=== PATIENT | male | born 1950 | race Caucasian/White ===

== ENCOUNTER 2024-07-05 18:49 | Emergency (ER) | payer MEDICARE, SELFPAY ==
[2024-07-05] VITALS (8 sets, daily range): BP systolic 130–132; BP diastolic 70–84; PULSE 78–99; RESP 16; TEMP 36.7; O2SAT 94–99
--- NOTE | 2024-07-05 19:00 | DI.CT_ITS ---
Exam(s) CT HEAD WO EXAM: CT HEAD WO CLINICAL HISTORY: dizziness, BANUELOS, weeks onset. TECHNIQUE: Imaging Protocol: Axial computed tomography images with coronal and sagittal reformatted images were created and reviewed COMPARISON: No exams were available for comparison FINDINGS: Ventricles and Extra axial spaces: Normal in size and morphology for the patient's age. Hemorrhage: None. Cerebral parenchyma: There are areas of decreased attenuation in the white matter consistent with sma ll vessel ischemic disease. 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 Midline shift: None. Brainstem/Cerebellum: Normal. Calvarium: Normal. Visualized Paranasal sinuses/Mastoids: Clear. Soft Tissues: Unremarkable. IMPRESSION: No acute intracranial process. RADIATION DOSE DELIVERED: 857.14mGy.cm Total DLP DATA REPOSITORY: All CT scans at this facility are submitted to the National Radiology Data Registry (NRDR) Dose Index Registry (DIR) with the [employer] ([employer]). RADIATION OPTIMIZATION: All CT scans at this facility use at least one of these dose optimization te chniques: automated exposure control; mA and/or kV adjustment per patient size (includes targeted exa ms where dose is matched to clinical indication); or iterative reconstruction.
--- NOTE | 2024-07-05 19:00 | RT.EKG_ITS ---
APPROVED REPORT Exam: Resting ECG Reason for Exam: dizziness Patient Location: E HR:91 bpm ECG Measurements Heart Rate [address] 195 P 52 QRSd 103 QRS -54 QT 352 T 88 QTc 435 Conclusion Sinus rhythm, rate 91 No interval abnormalities No STEMI
--- NOTE | 2024-07-05 19:02 | ED.GENADUL_ITS ---
Discharge Plan Disposition Patient Disposition: Home Condition: Stable Discharge Details Clinical Impression: Fatigue Primary Care Provider: Unknown,Unknown ED Provider: Morgan Merritt Home Meds and New Rx's Prescriptions: No Action acetaminophen [8HR Muscle Aches-Pain] 650 mg tablet extended release 650 mg PO Q8H PRN Discharge Instructions Instructions: Fatigue Additional Instructions: You were seen in the emergency department for your longstanding fatigue that is gradually increasing with time and exertion, you feel that you may have Lyme disease, we will not get results back on your Lyme test until tomorrow, the other tickborne illnesses like ehrlichiosis and babesiosis will not come back for 3 to 4 days. You do not have a primary care provider and I am placing on a list for primary care establishment. You are a longstanding smoker and I think you need some baseline pulmonary function testing as well as baseline cardiology studies performed. There is no abnormalities seen on your EKG and your troponin which is a cardiac enzyme that measures strain on the heart is negative tonight. There is no sign of major infection on your blood work I think it is reasonable that you be discharged home but I do stress that you likely need in-depth outpatient evaluation and primary care establishment with specialty referrals. Please return to the emergency department for any profound increase in your symptoms, any increasing fever, neurologic abnormalities, chest pain with exertion, profound shortness of breath. Referrals: [facility] [Provider Group] [facility] [Provider Group] Discharge Data Discharge Date/Time-TO BE ENTERED AT DEPARTURE: 07/05/24 22:04 HPI General Date/Time Provider Initiated Documentation: 07/05/24 19:02 . HPI Narrative: 73 year-old male presents to ED today by POV/ambulating with his with a chief complaint of fatigue, decreased appetite, occasional positional dizziness when getting up too fast, wants to be tested for Lyme as he's had many tick bites over the summer with onset weeks to months. Quality described as generalized fatigue, sleeping often, decreased appetite, no radiation to fever, cough, abdominal pain, intractable nausea/vomiting, numbness/tingling, focal weakness, endorses that he gets short on breath after exertion. Severity is described as moderate. Palliating factors include nothing specific. Provoking factors include nothing specific. Events leading up to the incident/Associated Symptoms: Patient is a longstanding smoker, does not go to the doctors often, and goes to [facility] to obtain Tylenol w/ codeine for knee pain. Patient not anticoagulated. Related Data Home Medications ?Medication ?Instructions ?Recorded ?Confirmed acetaminophen 650 mg 650 mg PO Q8H PRN 07/05/24 07/05/24 tablet,extended release (8HR Muscle Aches-Pain) Allergies Allergy/AdvReac Type Severity Reaction Status Date / Time No Known Allergies Allergy Unverified 07/05/24 18:56 General Stated Complaint: GenMedical LOUISA: 3 Review of Systems All systems reviewed & are unremarkable except as noted in HPI and below Exam Narrative Exam Narrative: GENERAL APPEARANCE: Well-nourished, non-toxic, awake and alert, atraumatic, no acute distress. SKIN: Warm, pink, dry, intact, without rashes/lesions/ulcerations. HEAD: Normocephalic, atraumatic, normal hair distribution for gender/age. EYES: Normal conjunctiva, no exudates on lids/lashes. ENT: Nares patent, no circumoral cyanosis, no facial swelling NECK: Supple, trachea midline, painless cervical ROM. LUNGS/CHEST: Lungs CTA bilaterally- mild expiratory wheezes, non-labored respirations, increased A/P diameter, symmetrical expansion, no chest wall deformity HEART (CV/PV): Regular rate and rhythm without murmur, no peripheral edema, no JVD. ABDOMEN: Soft, non-distended, no guarding, no tenderness. MSK: Normal ROM, no swelling/deformity to bilateral UEs or LEs, moving all extremities without weakness, no cyanosis, spine midline without tenderness, normal curvature. NEURO: Mental Status AAOx4 - alert to person, place, time, events No facial droop, no forehead involvement, no dysmetria with FNF/heel-dodson Motor: No focal weakness - strength 5/5 in bilateral UEs and LEs, proximal and distal, symmetric. Sensory: sensation intact to light touch globally. Gait normal: patient ambulated without ataxia into ED room. PSYCH: euthymic, cooperative, pleasant, appropriate speech Course Vital Signs Vital signs: Vital Signs Temperature 36.7 C 07/05/24 18:53 Pulse 99 H 07/05/24 18:53 Respiratory Rate 16 07/05/24 18:53 Blood Pressure 132/84 07/05/24 18:53 Pulse Oximetry 99 09/23/24 18:53 Temperature 36.7 C 07/05/24 18:53 Pulse 99 H 07/05/24 18:53 Respiratory Rate 16 07/05/24 18:53 Respiratory Effort Normal 07/05/24 18:55 Blood Pressure 132/84 07/05/24 18:53 Pulse Oximetry 99 07/05/24 18:53 Pain Level 4 07/05/24 18:53 Medical Decision Making This dictation utilizes [id number] dictation software and may contain unedited grammatical errors. 73 year-old male presents to ED today by POV/ambulating with his with a chief complaint of fatigue, decreased appetite, occasional positional dizziness when getting up too fast, wants to be tested for Lyme as he's had many tick bites over the summer with onset weeks to months. Quality described as generalized fatigue, sleeping often, decreased appetite, no radiation to fever, cough, abdominal pain, intractable nausea/vomiting, numbness/tingling, focal weakness, endorses that he gets short on breath after exertion. Severity is described as moderate. Palliating factors include nothing specific. Provoking factors include nothing specific. Events leading up to the incident/Associated Symptoms: Patient is a longstanding smoker, does not go to the doctors often, and goes to [facility] to obtain Tylenol w/ codeine for knee pain. Patients' medical history: Unknown, patient does not go to the doctor office. Family and social history: Longstanding heavy smoker, denies illicit drug use, no sick contacts. Pertinent exam findings / vital signs include increased A/P diameter with poor air movement, no severe wheezing, no hypoxia, benign abdomen, neuro intact, no dysmetria with cerebellar testing. Differential / pathologies of concern include viral syndrome, pneumonia, COPD exacerbation, demand ischemia, tickborne illness, electrolyte abnormality, intracranial mass. Diagnostic studies of: -CBC, CMP, troponin I, magnesium, TSH, BNP, COVID/flu/RSV PCR, tick and Lyme panel, CT head without contrast, EKG. -CBC without leukocytosis, mild anemia -CMP without electrolyte abnormalities -Trop negative with reliable onset -BNP negative -TSH wnl -Covid/Flu/RSV negative -Magnesium WNL -Tick panel pending -CT Head negative -EKG without ischemic changes Interventions of: -None, recommend patient establish PCP care. ED Course/Assessment/Plan: 73-year-old male who is a lifelong heavy smoker presents with worsening fatigue over the summer months with lots of tick bites, I question whether he has viral syndrome versus chronic COPD causing some exertional fatigue, his tick panel is still pending, his cardiac workup is negative, there is no intracranial abnormality on CT head without contrast, the patient has not seen a doctor in many years I did place him on the list to establish primary care, I think he needs an echocardiogram possibly stress test as well as evaluation for his chronic fatigue, I stressed strict return criteria for any emergent concerns. Findings not consistent with hypoxic respiratory failure, acute coronary syndrome, electrolyte abnormality, infection, thyroid abnormality, intracranial pathology. Disposition of Fatigue. Patient verbalized understanding of the plan and return to ED criteria and engaged in shared decision making. Medical Records Medical records reviewed: Yes I reviewed the patient's medical records. Imaging Data Radiologic Study: Attestation: I personally reviewed and interpreted this imaging study as follows: Imaging: CT Scan Radiologist's impression: Exam: CT Head Without Contrast Exam date and time: 07/05/2024 8:59 PM Age: 73 years old Clinical indication: Dizziness and other: Weakness, BANUELOS; Patient HX: Dizziness, weakness, BANUELOS TECHNIQUE: Imaging protocol: Computed tomography of the head without contrast. Radiation optimization: All CT scans at this facility use at least one of these dose optimization techniques: automated exposure control; mA and/or kV adjustment per patient size (includes targeted exams where dose is matched to clinical indication); or iterative reconstruction. COMPARISON: No relevant prior studies available. FINDINGS: Brain: There is mild diffuse volume loss with prominence of the cortical sulci. Periventricular and deep white matter hypodensities are consistent with sequela of chronic microvascular ischemic disease. Suspect old lacunar infarct within the left basal ganglia but nonspecific. No midline shift or herniation. No acute intracranial hemorrhage. Cerebral ventricles: Mild ex vacuo dilation of the ventricles, favored secondary to diffuse volume loss with nonspecific. Paranasal sinuses: Imaged paranasal sinuses appropriately aerated without air-fluid levels. Mastoid air cells: No mastoid effusion. Bones: Unremarkable. No acute fracture. Soft tissues: No focal soft tissue abnormality. IMPRESSION: No acute intracranial hemorrhage. Dictated and Authenticated by: Bud Hughes MD. Lab Data Lab results reviewed: Yes I reviewed the patient's lab results. Labs: Laboratory Tests Range/Units 07/05/24 19:50 WBC (4.4-10.8) 10^3/uL 6.24 RBC (4.36-5.78) 10^6/uL 2.93 L Hgb (13.5-17.5) g/dL 12.0 L Hct (40.0-50.0) % 34.2 L MCV (80-95) fL 117 H MCH (27.0-33.0) pg 41.0 H MCHC (32.0-36.0) % 35.1 RDW (11.8-14.1) % 12.7 Plt Count (130-400) 10^3/uL 268 MPV (8.0-11.0) fL 10.2 Immature Gran % % 0.5 Neutrophils % % 59.0 Lymphocytes % % 23.1 Monocytes % % 13.5 Eosinophils % % 3.4 Basophils % % 0.5 Nucleated RBC % (0.0-0.3) % 0.0 Absolute Neutrophils (1.2-6.7) 10^3/uL 3.69 Absolute Lymphocytes (1.2-3.4) 10^3/uL 1.44 Absolute Monocytes (0.1-0.8) 10^3/uL 0.84 H Absolute Eosinophils (0.0-0.7) 10^3/uL 0.21 Absolute Basophils (0.0-0.2) 10^3/uL 0.03 RBC Morphology See Below Macrocytosis 3+ Sodium (136-145) mmol/L 137 Potassium (3.5-5.1) mmol/L 4.1 Chloride (98-107) mmol/L 101 Carbon Dioxide (21.0-32.0) mmol/L 31.3 Anion Gap (3-11) mmol/L 4.7 BUN (7-18) mg/dL 11 Creatinine (0.70-1.30) mg/dL 0.8 Est GFR (CKD-EPI 2020) (mL/min/1.73m2) 92.87 Glucose (74-106) mg/dL 94 Calcium (8.5-10.1) mg/dL 8.5 Magnesium (1.8-2.4) mg/dL 1.9 Total Bilirubin (0.2-1.0) mg/dL 0.25 AST (15-37) U/L 18 ALT (16-63) U/L 20 Alkaline Phosphatase (46-116) U/L 108 Troponin I (<or=76) ng/L 6 NT-Pro-B Natriuret Pep (<300) pg/mL 56 Total Protein (6.4-8.2) g/dL 6.6 Albumin (3.4-5.0) g/dL 3.6 TSH (0.36-3.74) uIU/mL 1.12 COVID-19 Source Nasopharynx SARS-CoV-2 (PCR) (Negative) Negative Influenza Type A (PCR) (Negative) Negative Influenza Type B (PCR) (Negative) Negative RSV (PCR) (Negative) Negative Quality:SDOH Health Related Social Needs: No Data to Display PFSH All Active Problems (Updated 07/05/24 @ 21:41 by JAMES Mejia) Fatigue (Acute) Social History Smoking/Tobacco Use Status: Never Smoking risk assessment performed?: Yes Alcohol Intake: current Drug use: Never Substance use type: does not use Housing: house Do you feel safe at home: Yes Do you feel safe in your relationship?: Yes
[2024-07-05] MEDS: Normal Saline 500 ML IV (19:55)
[2024-07-05] MEDS: Ketorolac 15 MG/ML VIAL IVP (19:55)
[2024-07-05 20:07] LABS: Abs Immature Grans 0.03 10^3/uL (0.0-0.06); Absolute Basophil Count 0.03 10^3/uL (0.0-0.2); Absolute Eosinophil Count 0.21 10^3/uL (0.0-0.7); Absolute Lymphocyte Count 1.44 10^3/uL (1.2-3.4); Absolute Monocyte Count 0.84 10^3/uL (0.1-0.8); Absolute Neutrophil Count 3.69 10^3/uL (1.2-6.7); Basophils % 0.5 %; Eosinophils % 3.4 %; HCT 34.2 % (40.0-50.0); Immature Grans % 0.5 %; Lymphocytes % 23.1 %; MCHC 35.1 % (32.0-36.0); MCV 117 fL (80-95); MPV 10.2 fL (8.0-11.0); Monocytes % 13.5 %; Platelet Count 268 10^3/uL (130-400); RBC 2.93 10^6/uL (4.36-5.78); RDW 12.7 % (11.8-14.1); WBC 6.24 10^3/uL (4.4-10.8)
[2024-07-05 20:20] LABS: Macrocytosis 3+
[2024-07-05 20:30] LABS: ALT 20 U/L (16-63); AST 18 U/L (15-37); Albumin 3.6 g/dL (3.4-5.0); Alkaline Phosphatase 108 U/L (46-116); Anion Gap 4.7 mmol/L (3-11); BUN 11 mg/dL (7-18); Bilirubin, Total 0.25 mg/dL (0.2-1.0); CO2 31.3 mmol/L (21.0-32.0); CREATININE 0.8 mg/dL (0.70-1.30); Calcium 8.5 mg/dL (8.5-10.1); Chloride 101 mmol/L (98-107); Estimated GFR 92.87 (mL/min/1.73m2); Glucose 94 mg/dL (74-106); Magnesium 1.9 mg/dL (1.8-2.4); NT-proBNP 56 pg/mL (<300); Potassium 4.1 mmol/L (3.5-5.1); Sodium 137 mmol/L (136-145); TSH (W/Ref FT4) 1.12 uIU/mL (0.36-3.74); Total Protein 6.6 g/dL (6.4-8.2); Troponin I 6 ng/L (<or=76)
[2024-07-05 20:39] LABS: COVID-19 PCR Negative (Negative); Influenza A PCR Negative (Negative); Influenza B PCR Negative (Negative); RSV PCR Negative (Negative)
[2024-07-05 20:41] LABS: Source Nasopharynx
--- NOTE | 2024-07-05 22:09 | DI.VRAD_ITS ---
PROCEDURE INFORMATION: Exam: CT Head Without Contrast Exam date and time: 07/05/2024 8:59 PM Age: 73 years old Clinical indication: Dizziness and other: Weakness, BANUELOS; Patient HX: Dizziness, weakness, BANUELOS TECHNIQUE: Imaging protocol: Computed tomography of the head without contrast. Radiation optimization: All CT scans at this facility use at least one of these dose optimization techniques: automated exposure control; mA and/or kV adjustment per patient size (includes targeted exams where dose is matched to clinical indication); or iterative reconstruction. COMPARISON: No relevant prior studies available. FINDINGS: Brain: There is mild diffuse volume loss with prominence of the cortical sulci. Periventricular and deep white matter hypodensities are consistent with sequela of chronic microvascular ischemic disease. Suspect old lacunar infarct within the left basal ganglia but nonspecific. No midline shift or herniation. No acute intracranial hemorrhage. Cerebral ventricles: Mild ex vacuo dilation of the ventricles, favored secondary to diffuse volume loss with nonspecific. Paranasal sinuses: Imaged paranasal sinuses appropriately aerated without air-fluid levels. Mastoid air cells: No mastoid effusion. Bones: Unremarkable. No acute fracture. Soft tissues: No focal soft tissue abnormality. IMPRESSION: No acute intracranial hemorrhage. Dictated and Authenticated by: Bud Hughes MD. Ordering:KALEB Mora MD
--- NOTE | 2024-07-06 18:43 | NUR.NOTE ---
Mirna called asking to get a prescription for the medication that he was given last night. It worked well. I spoke with iWlver Merritt and it was tyelnol and ibuprofen. Per Wilver Merritt she was told for him to take the tyleol and ibuprofen and that he could alternate it when taking it. She also asked about the CT scan and per Wilver Merritt she was told that it was negative. Nursing Note:
[2024-07-07 10:14] LABS: Lyme Ab w Rflx to Lyme Confirm Negative (Negative)
[2024-07-09 00:24] LABS: Anaplasma phagocytophilum Negative (Negative); B. miyamotoi PCR Negative (Negative); Babesia divergens/MO-1 Negative (Negative); Babesia duncani Negative (Negative); Babesia microti Negative (Negative); Ehrlichia chaffeensis Negative (Negative); Ehrlichia ewingii/canis Negative (Negative); Ehrlichia muris eauclairensis Negative (Negative)
--- NOTE | 2024-07-09 14:57 | NUR.NOTE ---
Nursing Note: Patient called looking for his results for the tick and lyme send out. They are very frustrated because they stated that they have called here multiple times and have not received an answer, but keep getting passed around from person to person with no answers. I apologized a few times. I was able to locate the results from the pathology for 07/05 and read them to the patient. Everything came back negative- according to the test, the patient does not have lyme disease. She was thanksful and apologized for being frustrated. I apologized for the experience again and told her I was happy to help.
== END 2024-07-05 22:04 | disposition home or self-care (01) ==
PROVIDERS: Emergency Provider Physician Assistant
DX: R53.83 Other fatigue (principal); R63.0 Anorexia; F17.200 Nicotine dependence, unspecified, uncomplicated; R42 Dizziness and giddiness; R51.9 Headache, unspecified
CPT/HCPCS: 80053; 87637; 87798; 93005; 96374; 96375; 99284; 70450; 83735; 83880; 84443; 84484; 85025; 86618; 93010; 99283; J0131; J1885

== ENCOUNTER 2024-10-29 10:47 | Outpatient (CLI) | payer MEDICARE, SELFPAY ==
--- NOTE | 2024-10-29 14:22 | DI.RAD_ITS ---
Exam(s) XR LUMBAR SPINE COMPLETE EXAM: XR LUMBAR SPINE COMPLETE CLINICAL HISTORY: back pain, dorsalgia-M54.9. TECHNIQUE: 2D digital imaging was performed. Five views. COMPARISON: No exams were available for comparison FINDINGS: BONES: No fracture or destructive lesion. Vertebral body heights are maintained. Prominent facet h ypertrophy identified at L4-5 and L5-S1.. DISKS: Mild narrowing of the L4-5 and L5-S1 disc spaces, greater on the left side. The remaining i ntervertebral disc spaces are maintained. ALIGNMENT: Mild retrolisthesis of L5 secondary to prominent facet degenerative changes. Mild degener ative scoliosis. SOFT TISSUE: Normal. IMPRESSION: Degenerative changes of the lower lumbar spine. DATA REPOSITORY: RADIATION DOSE DELIVERED:
== END 2024-10-29 11:07 ==
LOC: DI 10:48
PROVIDERS: Visit Provider Physician Assistant
DX: M51.360 Other intervertebral disc degeneration, lumbar region with discogenic back pain only (principal)
CPT/HCPCS: 72110

== ENCOUNTER 2024-11-10 09:18 | Outpatient (REF) | payer MEDICARE, SELFPAY ==
[2024-11-10 15:43] LABS: HCT 30.8 % (40.0-50.0); HGB 10.7 g/dL (13.5-17.5); MCH 39.9 pg (27.0-33.0); MCHC 34.7 % (32.0-36.0); MCV 115 fL (80-95); MPV 9.9 fL (8.0-11.0); Platelet Count 303 10^3/uL (130-400); RBC 2.68 10^6/uL (4.36-5.78); RDW 13.3 % (11.8-14.1); RDW-SD 56.8 fL; WBC 7.44 10^3/uL (4.4-10.8)
[2024-11-10 15:55] LABS: ALT 16 U/L (16-63); AST 23 U/L (15-37); Albumin 3.9 g/dL (3.4-5.0); Alkaline Phosphatase 81 U/L (46-116); Anion Gap 4.1 mmol/L (3-11); BUN 9 mg/dL (7-18); Bilirubin, Total 0.72 mg/dL (0.2-1.0); CO2 29.9 mmol/L (21.0-32.0); CREATININE 0.8 mg/dL (0.70-1.30); Calcium 8.9 mg/dL (8.5-10.1); Chloride 98 mmol/L (98-107); Estimated GFR 92.29 (mL/min/1.73m2); Glucose 105 mg/dL (74-106); Potassium 4.6 mmol/L (3.5-5.1); Sodium 132 mmol/L (136-145); Total Protein 6.4 g/dL (6.4-8.2)
== END 2024-11-10 09:19 | disposition home or self-care (01) ==
LOC: LBN 09:18
PROVIDERS: PCP Nurse Practitioner Family; Visit Provider Nurse Practitioner Family
DX: R89.9 Unspecified abnormal finding in specimens from other organs, systems and tissues (principal)
CPT/HCPCS: 80053; 85027

== ENCOUNTER 2024-11-11 15:34 | Outpatient (CLI) | payer MEDICARE, SELFPAY ==
--- NOTE | 2024-11-11 14:00 | DI.RAD_ITS ---
Exam(s) XR KNEE LT 2V AP,LAT EXAM: XR KNEE LT 2V AP,LAT CLINICAL HISTORY: knee pain. TECHNIQUE: 2D digital imaging was performed. COMPARISON: CR XR STANDING ALIGNMENT from 11/11/2024 FINDINGS: Single lateral view left knee Advanced osteoarthritic changes are noted in the patellofemoral car apartment with advanced joint spa ce narrowing and prominent osteophytes on both sides of this compartment. There are also calcific de nsities in the suprapatellar bursa. 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 Narrowing of the medial compartment left knee also noted. IMPRESSION: Advanced degenerative changes in the patellofemoral and medial compartments. Also loose bodies noted in the suprapatellar bursa region DATA REPOSITORY: RADIATION DOSE DELIVERED:
--- NOTE | 2024-11-11 14:00 | DI.RAD_ITS ---
Exam(s) XR STANDING ALIGNMENT EXAM: XR STANDING ALIGNMENT CLINICAL HISTORY: knee pain. TECHNIQUE: 2D digital imaging was performed. COMPARISON: No exams were available for comparison FINDINGS: 3 views There is [id number] narrowing of the medial compartment of the left knee and Verus deformity. Late ral compartment of the left knee exhibits normal height. In the opposite-right knee there is no sign ificant narrowing of the medial lateral compartments evident. There is mild narrowing of the left hip joint compartment. Right hip joint compartment appears unrem arkable. Also mild narrowing of the left ankle tibia 0 talar joint. Right ankle unremarkable. Also noted is a deformity in the proximal half of the left tibia consistent with healed fracture site . There is abnormality in the proximal 3rd of the right fibula and adjacent tibia which has the appeara nce of mildly impacted fracture sites. However, there significant possibility that this represents a rtifact, given the technique. IMPRESSION: [id number] narrowing of the medial compartment of the left knee. Left knee Verus deformity. Heale d fracture site proximal diaphysis of the left tibia. Proximal right tibia and fibular findings as above which are probably artifact. DATA REPOSITORY: RADIATION DOSE DELIVERED:
== END 2024-11-11 15:35 | disposition home or self-care (01) ==
LOC: DIORS 15:34
PROVIDERS: PCP Nurse Practitioner Family; Visit Provider Student in an Organized Health Care Education/Training Program
DX: M25.569 Pain in unspecified knee (principal); M17.12 Unilateral primary osteoarthritis, left knee
CPT/HCPCS: 99214; 73560; 77073

== ENCOUNTER 2024-11-22 00:28 | Emergency (ER) | payer MEDICARE, SELFPAY ==
[2024-11-22 00:29] VITALS: BP 150/106; PULSE 86; RESP 16; TEMP 36.8; O2SAT 95
--- NOTE | 2024-11-22 00:55 | ED.GENADUL_ITS ---
Discharge Plan Disposition Patient Disposition: Home Condition: Good Discharge Details Clinical Impression: Back pain Primary Care Provider: Landy Early ED Provider: Morgan Kirby Home Meds and New Rx's Prescriptions: New prednisone 50 mg tablet 50 mg PO DAILY Qty: 4 0RF lidocaine [Lidoderm] 5 % adhesive patch,medicated 1 patch Topical Q24H Qty: 15 0RF No Action tramadol 50 mg tablet 50 mg PO BID PRN (Reason: pain) Qty: 30 0RF celecoxib [Celebrex] 100 mg capsule 100 mg PO BID Qty: 60 3RF acetaminophen [8HR Muscle Aches-Pain] 650 mg tablet extended release 650 mg PO Q8H PRN Discharge Instructions Instructions: Low Back Pain ED Additional Instructions: At this time your signs and symptoms are clinically consistent with a back sprain. This can cause significant pain and take a fair bit of time to heal. I expect 1 to 2 months for potential resolution. In the meantime do not lift anything greater than 5 pounds for the next 2 weeks. Avoid any significant vigorous physical activity. Perform easy gentle regular activities at home without any significant bending or lifting. Please take the steroids as directed. You have been given a prescription for Lidoderm patch. If your ins urance does not cover this you can get [id number] Lidoderm patches at 4% which are almost just as effective. Please use a heating pad as often as possible on your back. Perform daily gentle stretches on your back. Please continue to take the Tylenol. You can take 1000 mg of Tylenol every 6 hours. If you notice any worsening of your symptoms, or any new symptoms such as vomiting, diarrhea, fever, chills, shortness of breath, chest pain, numbness or tingling in your groin or legs, weakness in your legs, loss of control for your bowels or bladder, or fainting , please return immediately to the emergency department for reevaluation. Please follow up with your primary care provider as soon as possible for reassessment and reevaluation. As always, it was a pleasure participating in your medical care today. Referrals: Landy Early APRN [Primary Care Provider] - HPI General Date/Time Provider Initiated Documentation: 11/22/24 00:32 . HPI Narrative: This is a 74-year-old male with a past medical history of osteoarthritis specifically in the left hip, recurrent right SI joint back pain and previous sciatica, who presents today for right back pain. Patient states that this evening about an hour ago he was opening a window and rotated to the side, he then developed sudden stabbing pain in his right back and buttock that radiated down the right leg. It lasted for few minutes and then gradually notably improved. He was then brought to the ER by EMS for further assessment after his pain had resolved. Total time since initial injury was about 1 hour ago. Currently he admits to very mild ache, he denies any falls or trauma. It no longer causes any radiation down the leg. Patient denies any saddle anesthesia, numbness or tingling in the groin, change in sensation when wiping. Patient denies any change in sensation during sexual intercourse, difficulty achieving or maintaining an erection or ejaculation, bowel or bladder incontinence, leakage, or retention. Patient denies any weakness in the lower extremities, atypical falls or imbalance. Related Data Home Medications ?Medication ?Instructions ?Recorded ?Confirmed acetaminophen 650 mg 650 mg PO Q8H PRN 07/05/24 11/22/24 tablet,extended release (8HR Muscle Aches-Pain) celecoxib 100 mg capsule (Celebrex) 100 mg PO BID #60 caps 11/10/24 11/22/24 tramadol 50 mg tablet 50 mg PO BID PRN pain #30 tabs 11/11/24 11/22/24 lidocaine 5 % topical patch 1 patch topical Q24H #15 ea 11/22/24 (Lidoderm) prednisone 50 mg tablet 50 mg PO DAILY #4 tabs 11/22/24 Previous Rx's ?Medication ?Instructions ?Recorded celecoxib 100 mg capsule (Celebrex) 100 mg PO BID #60 caps 11/10/24 tramadol 50 mg tablet 50 mg PO BID PRN pain #30 tabs 11/11/24 lidocaine 5 % topical patch 1 patch topical Q24H #15 ea 11/22/24 (Lidoderm) prednisone 50 mg tablet 50 mg PO DAILY #4 tabs 11/22/24 Allergies Allergy/AdvReac Type Severity Reaction Status Date / Time No Known Allergies Allergy Unverified 11/22/24 00:33 General Stated Complaint: Orthopedic LOUISA: 4 Exam Narrative Exam Narrative: 1.Const: Well-nourished, Well-developed, appearing stated age 2.Eyes: PERRL, no conjunctival injection, and symmetrical lids. 3.ENT: Atraumatic external nose and ears. Moist MM. Neck: Symmetric, trachea midline, No thyromegaly. 4.CVS: +S1/S2, Peripheral pulses 2+ and equal in all extremities. Brisk capillary refill in all extremities. 5.RESP: Unlabored respiratory effort. Clear to auscultation bilaterally. No wheezes rales or rhonchi 6.GI: Soft, Nontender/Nondistended, No hepatosplenomegaly. No guarding or rebound. 7.MSK: Normocephalic/Atraumatic, Extremities w/o deformity or ttp No cyanosis or clubbing, Normal movement of all extremities No midline tenderness to palpation over the CTLS spine. Normal ROM in flexion, extension, side bend, and rotation. Patient has +5 out of 5 strength in the lower extremities in dorsiflexion and plantarflexion, knee flexion and extension, hip flexion and extension. Normal strength for dorsiflexion and plantar flexion of the great toe bilaterally. There is +2 over 2 dorsalis pedis pulses bilaterally. There is normal sensation to the skin with light touch at the foot, knee, and hip. Normal saddle sensation. Good sensation over the deep sural nerve area bilaterally. Rectal exam demonstrates good rectal tone with excellent oswaldo-rectal sensation. Reflexes are +2 over 4 in the patellar reflex bilaterally. +5 out of 5 strength in the medial, ulnar, radial nerve distribution bilaterally in the hands as well as intact light touch sensation to these dermatomes on the hands. Mild achiness over the right SI joint. No pain with rotation of the hip. Patient ambulates well with his cane at baseline. 8.Skin: Warm, Dry. No rashes or lesions. 9.Neuro: personal secretary II-XII grossly intact. Sensation grossly intact, no focal neurologic deficits. 10.Psych: (AAO) x3. Appropriate mood and affect Course Vital Signs Vital signs: Vital Signs Temperature 36.8 C 11/22/24 00:29 Pulse 86 11/22/24 00:29 Respiratory Rate 16 11/22/24 00:29 Blood Pressure 150/106 H 11/22/24 00:29 Pulse Oximetry 95 11/22/24 00:29 Temperature 36.8 C 11/22/24 00:29 Pulse 86 11/22/24 00:29 Respiratory Rate 16 02/10/25 00:29 Blood Pressure 150/106 H 11/22/24 00:29 Blood Pressure Position Supine 11/22/24 00:29 Pulse Oximetry 95 11/22/24 00:29 Oxygen Delivery Method Room Air 11/22/24 00:29 Oxygen Flow Rate 0 11/22/24 00:29 Pain Level 3 11/22/24 00:36 Medical Decision Making This is a 74-year-old male with a past medical history of osteoarthritis specifically in the left hip, recurrent right SI joint back pain and previous sciatica, who presents today for right back pain. Patient states that this evening about an hour ago he was opening a window and rotated to the side, he then developed sudden stabbing pain in his right back and buttock that radiated down the right leg. It lasted for few minutes and then gradually notably improved. He was then brought to the ER by EMS for further assessment after his pain had resolved. Total time since initial injury was about 1 hour ago. Currently he admits to very mild ache, he denies any falls or trauma. It no longer causes any radiation down the leg. Patient denies any saddle anesthesia, numbness or tingling in the groin, change in sensation when wiping. Patient denies any change in sensation during sexual intercourse, difficulty achieving or maintaining an erection or ejaculation, bowel or bladder incontinence, leakage, or retention. Patient denies any weakness in the lower extremities, atypical falls or imbalance. Exam demonstrates well-appearing male, no acute distress. Mild achiness over the right SI joint. No midline spinal tenderness. No red flags suggestive of cauda equina. No evidence of neurovascular compromise for the lower extremities. Symptoms are notably improved per patient at this time. No indication for imaging with no trauma. No indication for emergent neuroimaging as he does not show any signs of life-threatening neurovascular compromise or history to suggest traumatic process. Concern for mild sciatica as well as potential mild SI joint irritation. Will recommend Tylenol NSAID therapy, Lidoderm patch, short course of steroids. We will give a few pain pills for home use to use as needed for breakthrough pain. Patient otherwise remains well and shows no other concerning abnormality on exam. Patient was able to get up and ambulate well without his cane, but he does use a cane at baseline. Will recommend continued use of this. I have extensively reviewed the treatment plan and discharge instructions with the patient. I have addressed all patient concerns at this time. The patient was made aware of what symptoms to monitor for that would warrant a return to the emergency department. Discussed the plan with the patient, they demonstrate verbal understanding and agreement with our assessment and plan at this time. The documentation in this chart was dictated using [employer] dictation software. Please excuse any dictation errors. Quality:SDOH Health Related Social Needs: No Data to Display PFSH All Active Problems (Updated 11/22/24 @ 01:02 by Morgan Kirby DO) Osteoarthritis of left knee (Acute) Loss of appetite (Acute) Abnormal laboratory test result (Acute) Back pain (Acute) Erectile dysfunction (Acute) Surgical History History of surgery on lower extremity Family History Son Diabetes Granddaughter Diabetes Social History Smoking/Tobacco Use Status: Current every day Tobacco Type: cigarettes Tobacco: How many years used: 40 Quit status: not considering quitting Second Hand Exposure: No Smoking risk assessment performed?: Yes Alcohol Intake: never Drug use: Never Substance use type: does not use Adopted: No Caregiver/Support person: No Foster care: No Household members: spouse Housing: house Number of Children: 2 number of grandchildren: 5 Communication Needs: Hard of Hearing Education Level: high school Do you need help understanding health information?: Never current occupation: [employer]a Pets and animals: Yes (2) Pets and animals: cat(s) Sexually active: Yes Do you think of yourself as: straight/heterosexual Current gender identity: male What is your relationship status?: How often do you talk on the phone with friends or family?: once per week How often do you get together with friends or relatives?: once per week Do you belong to any clubs or organized social groups?: no Panel score (0-1 are the most socially isolated patients): 1 What type of physical activity do you participate in: none Joanne/Orthodox: Yazidi Special joanne needs: No Seatbelt use: sometimes Helmet use: Yes (for work) Helmet use: sometimes Drive intox or ride w/intox medical delivery driver: No Do you feel safe at home: Yes Do you feel safe in your relationship?: Yes
[2024-11-22] MEDS: Lidocaine 5% Patch 1 PATCH TP (00:58)
[2024-11-22] MEDS: MORPHine IR 15 MG TAB, 4 TABS/BTL PO (00:59)
[2024-11-22] MEDS: Ketorolac 15 MG/ML VIAL IM (00:59)
[2024-11-22] MEDS: methylPREDNISolone SUCC 125 MG VIAL IM (00:59)
== END 2024-11-22 01:17 | disposition home or self-care (01) ==
PROVIDERS: Emergency Provider Student in an Organized Health Care Education/Training Program; PCP Nurse Practitioner Family
DX: M54.50 Low back pain, unspecified (principal)
CPT/HCPCS: 96372; 99284; 99283; J1885; J2919

== ENCOUNTER 2025-03-08 12:52 | Outpatient (CLI) | payer MEDICARE, SELFPAY ==
--- NOTE | 2025-03-08 12:45 | RT.EKG_ITS ---
APPROVED REPORT Exam: Resting ECG Reason for Exam: Pre-op Patient Location: O HR:94 bpm ECG Measurements Heart Rate 94 AXIS AL 185 P 78 QRSd 101 QRS -54 QT 346 T 95 QTc 433 Conclusion Sinus rhythm...normal P axis, V-rate 50- 99 Left anterior fascicular block...axis(240,-40), init forces inf Anteroseptal infarct, old...Q >40mS, V1-V2 Nonspecific T abnormalities, lateral leads...T <-0.10mV, I aVL V5 V6
== END 2025-03-08 12:53 | disposition home or self-care (01) ==
LOC: DI.KIM 12:53
PROVIDERS: PCP Nurse Practitioner Family; Visit Provider Emergency Medicine
DX: Z01.818 Encounter for other preprocedural examination (principal); I44.4 Left anterior fascicular block
CPT/HCPCS: 93010

== ENCOUNTER 2025-03-08 14:04 | Outpatient (CLI) | payer MEDICARE, SELFPAY ==
--- NOTE | 2025-03-08 14:14 | DI.RAD_ITS ---
Exam(s) XR CHEST 2V PA LATERAL EXAM: XR CHEST 2V PA LATERAL CLINICAL HISTORY: Unintentional abnl weight loss, R63.4, peripheral edema TECHNIQUE: 2D digital imaging was performed. Two views. COMPARISON: CR XR LUMBAR SPINE COMPLETE from 10/29/2024 FINDINGS: HEART: Normal size. Aorta: Mildly tortuous. PULMONARY VASCULATURE: Normal. MEDIASTINUM: Unremarkable. LUNGS: Clear. PLEURAL SPACE: Mild pleural thickening along the posterior pleura. No pneumothorax. BONE:Unremarkable for age. SOFT TISSUES: Unremarkable. IMPRESSION: No acute abnormality. DATA REPOSITORY: RADIATION DOSE DELIVERED:
== END 2025-03-08 14:24 ==
LOC: DI 14:04
PROVIDERS: PCP Nurse Practitioner Family; Visit Provider Emergency Medicine
DX: R63.4 Abnormal weight loss (principal)
CPT/HCPCS: 71046

== ENCOUNTER 2025-03-08 14:24 | Outpatient (CLI) | payer MEDICARE, SELFPAY ==
[2025-03-08 14:35] LABS: Abs Immature Grans 0.02 10^3/uL (0.0-0.06); Absolute Basophil Count 0.02 10^3/uL (0.0-0.2); Absolute Eosinophil Count 0.04 10^3/uL (0.0-0.7); Absolute Lymphocyte Count 1.09 10^3/uL (1.2-3.4); Absolute Monocyte Count 0.99 10^3/uL (0.1-0.8); Absolute Neutrophil Count 4.91 10^3/uL (1.2-6.7); Basophils % 0.3 %; Eosinophils % 0.6 %; HCT 33.3 % (40.0-50.0); HGB 11.5 g/dL (13.5-17.5); Immature Grans % 0.3 %; Lymphocytes % 15.4 %; MCH 38.3 pg (27.0-33.0); MCHC 34.5 % (32.0-36.0); MCV 111 fL (80-95); Neutrophils % 69.4 %; Platelet Count 351 10^3/uL (130-400); RDW-SD 52.6 fL; WBC 7.07 10^3/uL (4.4-10.8)
[2025-03-08 14:47] LABS: Hemoglobin A1C 5.6 % (<5.7)
[2025-03-08 14:48] LABS: Diff Comment RBC Morph Reviewed
[2025-03-08 14:49] LABS: Macrocytosis 2+
[2025-03-08 15:10] LABS: NT-proBNP 57 pg/mL (<300)
[2025-03-08 15:12] LABS: ALT 16 U/L (16-63); AST 14 U/L (15-37); Albumin 3.5 g/dL (3.4-5.0); Alkaline Phosphatase 78 U/L (46-116); Anion Gap 4.1 mmol/L (3-11); BUN 8 mg/dL (7-18); Bilirubin, Direct 0.2 mg/dL (0.0-0.2); Bilirubin, Total 0.5 mg/dL (0.2-1.0); CO2 31.9 mmol/L (21.0-32.0); CREATININE 0.7 mg/dL (0.70-1.30); Calcium 8.7 mg/dL (8.5-10.1); Chloride 98 mmol/L (98-107); Estimated GFR 96.09 (mL/min/1.73m2); Glucose 118 mg/dL (74-106); Potassium 4.1 mmol/L (3.5-5.1); Sodium 134 mmol/L (136-145); TSH 0.97 uIU/mL (0.36-3.74); Total Protein 6.4 g/dL (6.4-8.2)
[2025-03-08 15:14] LABS: D-Dimer 318 ng/mlFEU (<500)
== END 2025-03-08 14:25 | disposition home or self-care (01) ==
LOC: LBO 14:24
PROVIDERS: PCP Nurse Practitioner Family; Visit Provider Emergency Medicine
DX: I50.9 Heart failure, unspecified (principal); R60.0 Localized edema; E11.9 Type 2 diabetes mellitus without complications; E03.9 Hypothyroidism, unspecified; R89.9 Unspecified abnormal finding in specimens from other organs, systems and tissues
CPT/HCPCS: 36415; 80053; 80076; 71046; 83036; 83880; 84443; 85025; 85379

== ENCOUNTER 2025-04-25 03:02 | Outpatient (CLI) | payer MEDICARE, SELFPAY ==
[2025-04-25 13:30] LABS: Vitamin B12 199 pg/mL (193-986)
== END 2025-04-25 03:03 | disposition home or self-care (01) ==
LOC: LOS 03:02
PROVIDERS: PCP Nurse Practitioner Family; Visit Provider Nurse Practitioner Family
DX: E53.8 Deficiency of other specified B group vitamins (principal)
CPT/HCPCS: 36415; 82607

== ENCOUNTER 2025-06-29 01:51 | Outpatient (CLI) | payer MEDICARE, SELFPAY ==
[2025-06-29 16:29] LABS: HCT 37.3 % (40.0-50.0); HGB 12.7 g/dL (13.5-17.5); MCH 36.6 pg (27.0-33.0); MCHC 34.0 % (32.0-36.0); MPV 10.3 fL (8.0-11.0); Platelet Count 336 10^3/uL (130-400); RBC 3.47 10^6/uL (4.36-5.78); RDW 11.5 % (11.8-14.1); RDW-SD 46.0 fL; WBC 6.46 10^3/uL (4.4-10.8)
[2025-06-29 16:46] LABS: MCV 108 fL (80-95)
[2025-06-29 17:08] LABS: Vitamin B12 740 pg/mL (193-986)
== END 2025-06-29 01:52 | disposition home or self-care (01) ==
LOC: LOS 01:51
PROVIDERS: PCP Nurse Practitioner Family; Visit Provider Nurse Practitioner Family
DX: E53.8 Deficiency of other specified B group vitamins (principal)
CPT/HCPCS: 36415; 85027; 82607